=== PATIENT | female | born 1960 | race Caucasian/White ===

== ENCOUNTER → 2016-11-09 | Outpatient (CLI) | payer OTHER ==
[~2016-11-09] VITALS: Ht 170.2 cm; Wt 79.4 kg
[~2016-11-09] MED LIST: ADIPEX-P37.5 M1 PO; ALPRAZOLAM 0.50.5 MG PO; AMBIEN 5 MG TABL5 M1 PO; CARISOPRODOL 3350 MG PO; CLOBETASOL EMOL15 GM TP; HYDROCODONE-APA1 TA1 PO; LEVOTHYROXIN0.175 MG PO; LEXAPRO 10 MG T10 M2 PO; LIPITOR10 MG PO; MELOXICAM15 MG PO; RESTASIS1 EACH OPHTHALMIC; ROBAXIN 750 MG750 M1 PO; TRAMADOL 50 MG50 MG PO; ZANAFLEX4 MG PO
--- NOTE | ~2016-11-09 | HPC ---
[facility] [place] [address] PAIN MANAGEMENT CONSULTATION Name: ANDRE DOSHI ANN Room #: REG DANII Newman#: [id number] Admission: 11/09/16 Attend Phys: Tavon Jean DO Discharge: Date of : 58 Report #: [id number] THIS REPORT FOR: //name// CC: Ki Montoya The patient is seen in consultation at the request of Dr. Ki Wells. HISTORY OF PRESENT ILLNESS: The patient is a 56-year-old female. She was seen in consultation at the request of Dr. Wells to the pain clinic for assistance with management of chronic pain concerns. The patient notes she has had episodic back pain for greater than 10 years. She sustained an injury, right lower extremity, which was well documented as a work place injury. The patient was initially treated for right lower extremity injury (anterior talofibular ligament tear) with gait abnormalities. She seems to have developed some axial and radicular back pain. It appears there were MRIs from 2003 and another MRI referenced from 12/15/2009. I do not have any of these studies, but reference to these studies from Dr. Tavarez at the [facility] notes that the 2003 study showed "a disk bulge at L3-L4 and degenerative disk disease with disk bulge at L4-L5 and neural foraminal narrowing at L4-L5 and joint disease at L5-S1". The note further references the 12/15/2009 MRI noting "a central disk herniation at L4-L5. There was bilateral neural foraminal encroachment. There was also another disk herniation at L2-L3". The patient presents to the pain clinic noting chronic back pain. It is problematic. She describes a "squeezing" sensation in the right gluteal area, has subjective weakness in the right leg, which she attributes to her chronic right ankle issue. She does complain of paresthesia in the right calf (though two-point discrimination shows no sensory loss here). Denies saddle anesthesia or bowel or bladder continence changes. She incidentally notes some cervical radicular symptoms with left arm paresthesia, but states that this was well relieved with cervical epidural injection at the [facility] outside of [place] in 2013. The patient states she does physical therapy stretches, massage seems to help. Chiropractic manipulation has exacerbated pain. She gets in her hot tub at least twice a day. She was taking nonsteroidal anti-inflammatory medications, but had to discontinue due to gastroesophageal reflux even with relatively GI from the meloxicam. She states back pain is worse at night. She states she is "in agony" when she tries to sleep. She had taken hydrocodone in the past and Soma 350 mg when she was in [place], but stopped taking these agents several years ago stating a distaste for the general clientele of somewhat unsavory characters at the pain clinic she chose to patronize. She describes continuous, constant, burning, shooting, aching, grabbing and gnawing pain; rates it anywhere from a 5 to "8+" on a 0-10 visual analog scale. She states she has been taking tramadol recently with nominal efficacy. [address] [address] PAIN MANAGEMENT CONSULTATION Name: ANDRE DOSHI Room #: REG DANII Newman#: [id number] Admission: 11/09/16 Attend Phys: Vincent G. Ted, DO Discharge: Date of : 58 Report #: [id number] REVIEW OF SYSTEMS: Complete review of systems is attached to the chart and it was gone over with the patient. She is , seen in the company of her who is supportive. Does not smoke or drink alcohol to excess. History of Graves disease and subsequent hyperthyroidism secondary to radioactive iodine ablation many years ago. She has had a history of some colon polyps. No diverticulitis concerns noted. History of some chronic anxiety, for which she takes escitalopram 10 mg. Chronic insomnia, she takes zolpidem 10 mg at bedtime, which she has for 9-10 years. Has a prescription for Xanax which she takes "rarely". Dyslipidemia, for which she takes atorvastatin. She has been taking phentermine 37.5 mg over the past 2 months for some weight loss. Currently, does take tramadol and methocarbamol. She had been initially diagnosed with multiple sclerosis in early 1999, was actually treated with Copaxone for several years. 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 She had a craniotomy in 2007 and was told that she does not have multiple sclerosis, that the prior diagnosis was erroneous (?). Again, there are no records regarding this diagnosis (multiple sclerosis) or any records regarding the "benign brain tumor and craniotomy" from 2007. This is all the patient's recollection. The patient works in a job requiring executive functioning. Pain impact score is 49/70. PHYSICAL EXAMINATION: GENERAL: Reveals a 5-feet-7, 172-pound female, BMI is 27.4 kilograms per meter squared. VITAL SIGNS: Blood pressure 137/88, pulse 97 and respirations 16. NEUROLOGIC: Cranial nerves 2-12 appear grossly intact. HEENT: Pupils equal and reactive to light and accommodation. Extraocular muscles are intact. NECK: Cervical range of motion is full. Thyroid is absent. EXTREMITIES: Upper extremity strength is generally symmetric. She does have a small defect at the top of the cranium, compatible with her history of prior craniotomy (bur hole?). Again, upper extremity strength is symmetric at 4/5 to all muscle groups tested. Hand grasp is symmetric. Tinel's is negative. Deep tendon reflexes of the biceps, triceps and brachioradialis are symmetric. HEART: Regular and rhythmical, without murmur. LUNGS: Clear to auscultation. ABDOMEN: Shows a modestly endomorphic build. MUSCULOSKELETAL: Rises from chair using armrest. Gait is tandem, but she has some ataxia when trying to walk on her toes and heels. Lumbar flexion is good at 90 degrees. Tender about the L4 area, somewhat right of midline over the iliac crest and gluteus medius area. Lower extremity strength is objectively 4/5 to all muscle groups tested. Patellar and Achilles reflexes are preserved at 2/4 and 1/4 respectively. Straight leg raise is negative. She does not have [facility] [address] [place] [address] PAIN MANAGEMENT CONSULTATION Name: ANDRE DOSHI ANN Room #: REG DANII Newman#: [id number] Admission: 11/09/16 Attend Phys: Tavon Jean DO Discharge: Date of : 58 Report #: [id number] any tenderness over the SI joints. Rosalio test is negative. Two-point discrimination of lower extremities is symmetric. She does have tenderness over the right gluteus medius and exacerbates pain with resistance to piriformis rotation on the right side. ASSESSMENT: Axial back pain, piriformis syndrome, lumbar radiculopathy by history and prior history of trauma of the right foot. The patient is complaining of chronic pain concerns, requesting medication for the same. RECOMMENDATION: Long discussion with the patient and her today about therapeutic option. I suggested tramadol as an excellent medication for her. With concurrent use of fairly low-dose serotonin reuptake inhibiting agent (10 mg of Lexapro), she can easily increase the tramadol dose to 4 a day. I have taken the liberty of writing for a muscle relaxer, tizanidine 4 mg half to one tablet 3 times a day for spasm. We will seek authorization for right piriformis and gluteus medius muscle injection at next visit. We strongly recommend physical therapy for core strength and range of motion. The patient's new home has a pool which they just opened. Water temperature is 35 degrees. We strongly recommend core exercises and pool walking. We will follow up in 3-4 weeks for reevaluation. If the patient does have an ongoing pain need, she may benefit from a long-acting agent, avoiding the peaks and troughs of short-acting opiates and their consequent dopamine release, which can often be associated with opiate "craving". Would consider Butrans 5-10 mcg q. 7 days. If she has problems with patch, might consider low-dose hydrocodone extended-release single tablet daily. Thank you for allowing me to participate in the patient's care. We will plan on moving forward with right piriformis and gluteus medius muscle injection at next visit. <ELECTRONICALLY SIGNED> By: Tavon Jean DO 11/12/16 0750 [id number] 0050 Tavon Jean DO /nt
[2016-11-09 13:54] VITALS: BP 137/88
== END | disposition home or self-care (01) ==
LOC: PAIN 09:48
DX: G89.29 Other chronic pain (principal); M54.16 Radiculopathy, lumbar region; Z90.89 Acquired absence of other organs; Z90.711 Acquired absence of uterus with remaining cervical stump; Z98.890 Other specified postprocedural states

== ENCOUNTER → 2016-11-23 | Outpatient (CLI) | payer OTHER ==
[~2016-11-23] VITALS: Ht 170.2 cm; Wt 78.5 kg
--- NOTE | ~2016-11-23 | HPC ---
[facility] [place] [address] PAIN MANAGEMENT CONSULTATION Name: ANDRE DOSHI ANN Room #: REG DANII Newman#: [id number] Admission: 11/23/16 Attend Phys: Tavon Jean DO Discharge: Date of : 58 Report #: [id number] THIS REPORT FOR: //name// CC: Ki Jean AMENDED REPORT - SEE BELOW DATE OF SERVICE: 11/23/2016 HISTORY OF PRESENT ILLNESS: The patient is a 56-year-old female, seen in consultation on 11/09/2016, diagnosed with right SI mediated pain, chronic pain, with component of right cervical spondylosis and myofascial pain. We sought authorization for right pyriformis injection under fluoroscopy today. The patient presents to pain clinic today for this injection. Note subjective pain score today is 5 on a 0-10 visual analog scale. ASSESSMENT: Right pyriformis muscle entrapment syndrome PROCEDURE NOTE: Right pyriformis injection under fluoroscopy. DESCRIPTION OF PROCEDURE: After written informed consent was obtained, the patient taken to fluoroscopy suite, placed in prone position. After sterile prep and drape, skin wheal was raised. A 22-gauge stylet needle was placed to contact the inferior aspect of the right SI joint. Depth was noted and needle was withdrawn. Redirected approximately 1 cm caudad and was advanced approximately 1 cm further in depth. Negative aspiration was accomplished. A 1 mL of Omnipaque was injected, which showed spread within the striations of the piriformis muscle in the appropriate horizontal oblique pattern. This was followed with 40 mg triamcinolone plus 2 mL of 0.5% preservative-free bupivacaine. Eckert removed. The area was cleansed, Band-Aids applied. The patient monitored for an appropriate period of time, discharged in good and stable condition. AMENDED DEMOGRAPHIC ERROR - 12/03/16 REPORT ORIGINALLY E.SIGNED - 11/26/16 @ 0806 <ELECTRONICALLY SIGNED> By: Tavon Jean DO 12/05/16 0754 1525 0045 Tavon Jean DO /nt
[2016-11-23 13:58] VITALS: BP 130/60
== END | disposition home or self-care (01) ==
LOC: PAIN 11-15 09:21
DX: M53.3 Sacrococcygeal disorders, not elsewhere classified (principal); M47.892 Other spondylosis, cervical region; M79.1 Myalgia

== ENCOUNTER → 2016-12-13 | Outpatient (CLI) | payer OTHER ==
[~2016-12-13] VITALS: Ht 170.2 cm; Wt 78.5 kg
--- NOTE | ~2016-12-13 | HPC ---
[facility] [place] [address] PAIN MANAGEMENT CONSULTATION Name: DOSHIBLACK Room #: REG DANII Newman#: [id number] Admission: 12/13/16 Attend Phys: Tavon Jean DO Discharge: Date of : 58 Report #: [id number] THIS REPORT FOR: //name// CC: Ki Jean HISTORY OF PRESENT ILLNESS: The patient is a 56-year-old female, prior seen in the pain clinic in consultation 11/09/2016. The patient was diagnosed with axial back pain, piriformis syndrome, lumbar radiculopathy, prior history of cervical radiculopathy. The patient had specific pain in the right piriformis and gluteus. We elected to proceed with a right piriformis injection 11/23/2016. This was accomplished at last visit. She returns to the pain clinic today noting that that injection did not afford dramatic relief. The right gluteal and piriformis pain; however is improved, her pain now is more in her right L4 radicular pattern down the lateral aspect of the leg into the foot. She incidentally notes some cervical radicular symptoms, primarily in the left shoulder and arm today because she notes this is quite intermittent. Her chronic lumbar radicular pain remains problematic. She describes constant, burning, shooting, aching pain, a grabbing sensation in the right hip and down the leg with numbness that she rates as 7 on a 0-10 visual analog scale, exacerbated with prolonged sitting or standing. The patient denies bowel or bladder incontinence or myelopathic symptoms including loss of proprioception. PHYSICAL EXAMINATION: Shows a 56-year-old female, BMI is 27.1 kilograms per meter squared. Vital signs are stable. Rises from chair using armrest. Gait is modestly antalgic, right leg does show decrease hip flexion, lower extremity extension strength with grossly positive straight leg raise on the right. A little tenderness over the right piriformis and gluteus though significantly diminished from initial visit. ASSESSMENT: Symptomatic lumbar radiculopathy by clinical exam and history. The patient has failed conservative therapy including chiropractic manipulation. DIAGNOSTIC STUDIES: EMG from 2010 notes chronic bilateral radiculopathies. MRI from 12/15/2009 noting central disk herniation L4-L5. RECOMMENDATION: We will seek authorization for epidural injection under fluoroscopy at L4-L5. By: [id number] Tavon Jean DO /nt
[2016-12-13 14:34] VITALS: BP 133/79
== END ==
LOC: PAIN 12-06 14:02
DX: M54.16 Radiculopathy, lumbar region (principal)

== ENCOUNTER → 2017-01-21 | Outpatient (CLI) | payer OTHER ==
[~2017-01-21] VITALS: Ht 170.2 cm; Wt 80.4 kg
[~2017-01-21] MED LIST changes: +ADIPEX-P37.5 MG PO; +UNICOMPLEX M TA1 TA1 PO
--- NOTE | ~2017-01-21 | HPC ---
[facility] [place] [address] PAIN MANAGEMENT CONSULTATION Name: TICOBLACK Room #: REG DANII Newman#: [id number] Admission: 01/21/17 Attend Phys: Tavon Jean DO Discharge: Date of : 58 Report #: [id number] THIS REPORT FOR: //name// CC: Ki Jean DATE OF SERVICE: 01/21/2017 The patient is a 56-year-old female, prior seen in the pain clinic 12/13/2016. We sought authorization for epidural injection under fluoroscopy for right L4 radicular pain. The patient returns to pain clinic today noting pain remains problematic still down the back, right-side, buttock, posterior thigh into the foot. She is also noting 2 other complaints, pain in neck, left shoulder and arm, positive radicular symptoms with pain in the shoulder blade. She had prior had a cervical epidural injection at the [facility] in [place] with excellent relief for greater than a year. The other complaint is exogenous obesity. She had been on phentermine for about 6 months in [place], off for about 6-7 months when she moved back to [place]. She has been on phentermine now for about 1 month. Her BMI is 27.8 kilograms per meter squared (172 cm, 80 kilograms). PHYSICAL EXAMINATION: Shows 56-year-old female as noted, BMI is 27.8 kilograms per meter squared. Cervical range of motion is modestly limited with exacerbation of pain in the neck, left shoulder and arm, left abduction strength is modestly diminished. Deep tendon reflexes are symmetric with biceps, triceps, brachioradialis. Lower extremity strength does show diminished right hip flexion, plantar flexion, lower extremity flexion strength. Positive straight leg raise on the right. Rosalio test is negative. Gaenslen test is negative exacerbation of pain with external leg rotation (piriformis negative). ASSESSMENT #1: Symptomatic lumbar radiculopathy, acute exacerbation. RECOMMENDATION: Proceed with epidural injection under fluoroscopy today at L4-L5. ASSESSMENT #2: Exogenous obesity, body mass index of 27.8 kilograms per meter squared. RECOMMENDATIONS: After discussion with the patient today, I have elected to resume phentermine 37.5 mg 1 a day. We talked at length about increasing physical activity, getting heart rate up to 80% of max (approximately 150 beats per minutes) for 20 minutes daily to try and increase basal metabolic rate, [place] [address] PAIN MANAGEMENT CONSULTATION Name: ANDRE DOSHI ANN Room #: REG DANII Newman#: [id number] Admission: 01/21/17 Attend Phys: Tavon Jean DO Discharge: Date of : 58 Report #: [id number] talked about dietary discretion. I told her if she continues to lose weight, I will continue phentermine down to BMI of 26 kilograms per meter squared. ASSESSMENT #3: Component of cervical radiculopathy, left C7 symptoms. RECOMMENDATIONS: We will endeavor to get medical records from the [facility] regarding prior procedure. ASSESSMENT #4: Symptomatic lumbar radiculopathy. PROCEDURE: Lumbar epidural injection under fluoroscopy. PROCEDURE NOTE: After both written and informed consent to include risk of spinal cord damage, increased pain, weakness and dural puncture, the patient was taken to the fluoroscopy suite, placed in the prone position. After sterile prep and drape, a skin wheal with lidocaine was raised. A 22-gauge epidural Tuohy needle was inserted in the midline at L4-L5 with good loss to resistance. Negative aspiration for cerebrospinal fluid or blood was noted. Then 1 mL of Omnipaque under biplanar fluoroscopy showed good spread within the epidural space. This was followed with 80 mg of triamcinolone plus 1 mL of 1.5% preservative-free Xylocaine, 0.5 mL Xylocaine was then injected to flush the needle; it was removed. The patient was monitored for an appropriate period of time and discharged in good and stable condition. By: [id number] Tavon Jean DO /nt
[2017-01-21 09:55] VITALS: BP 123/79
== END | disposition home or self-care (01) ==
LOC: PAIN 01-18 11:11
DX: M54.16 Radiculopathy, lumbar region (principal); M54.12 Radiculopathy, cervical region; E66.09 Other obesity due to excess calories; Z68.27 Body mass index [BMI] 27.0-27.9, adult; Z98.890 Other specified postprocedural states; Z79.899 Other long term (current) drug therapy

== ENCOUNTER → 2017-02-11 | Outpatient (CLI) | payer OTHER ==
[~2017-02-11] VITALS: Ht 170.2 cm; Wt 79.0 kg
[2017-02-11 10:48] VITALS: BP 126/73
== END | disposition home or self-care (01) ==
LOC: PAIN 06:49
DX: M54.16 Radiculopathy, lumbar region (principal); M47.892 Other spondylosis, cervical region; M54.12 Radiculopathy, cervical region; M54.9 Dorsalgia, unspecified; G89.29 Other chronic pain; Z79.899 Other long term (current) drug therapy; Z98.890 Other specified postprocedural states

== ENCOUNTER → 2017-04-12 | Outpatient (CLI) | payer OTHER ==
[~2017-04-12] VITALS: Ht 170.2 cm; Wt 81.4 kg
[~2017-04-12] MED LIST changes: +KLONOPIN0.5 MG PO
--- NOTE | ~2017-04-12 | HPC ---
[facility] [place] [address] PAIN MANAGEMENT CONSULTATION Name: DOSHIBLACK Room #: REG DANII Newman#: [id number] Admission: 04/12/17 Attend Phys: Tavon Jean DO Discharge: Date of : 58 Report #: [id number] THIS REPORT FOR: //name// CC: Ki Jean DATE OF SERVICE: 04/12/2017 DATE OF SERVICE: 04/12/2017 HISTORY OF PRESENT ILLNESS: The patient is a 57-year-old female, prior seen in the pain clinic for symptomatic lumbar radicular and pyriformis syndrome pain. She had had a right pyriformis injection in October. Seen in followup on 02/11/2017. We had tentatively planned to repeat piriformis injection as needed. She returns to pain clinic today with a new complaint to our clinic. She had exacerbation of cervical radicular symptoms. She had had prior cervical symptoms treated at [facility] in [place], single cervical epidural injection afforded excellent relief for radicular pain. That has been several years ago. Today, she returns noting pain has recurred in the neck, left shoulder and arm. She notes pain is dull, tingling, tenderness, rates it as a 7 on VAS. Tends to be worse in the morning. She has paresthesia going into the hand and fingers. Notes pain is exacerbated with a specific neck position. Some chronic low back and right leg pain remains present though the radicular symptoms seem to be eclipsing those pain signals. PHYSICAL EXAMINATION: Today shows 57-year-old female, BMI is 28.1 kilograms per meter squared. Blood pressure is 111/44, pulse 70, respirations 14. Cervical range of motion is modestly limited. Positive Lhermitte's sign with pain radiating to the left shoulder and arm. Left biceps reflex is absent. It is 1/4 on the right. Brachioradialis and triceps reflexes are symmetric. Tinel's is negative. Slight decreased left biceps strength compared to the right. Hand grasp is symmetric. Thyroid is unremarkable. DIAGNOSTIC STUDIES: MRI of the cervical spine from 05/2012 done in [place], [place] noted C5-C6 to have a left paracentral disk protrusion flattening the ventral thecal sac, C6-C7 noted a right paracentral disk protrusion contacting and flattening the right side of the ventral cord. Again, symptoms correlate today, more with a left radicular C6 pattern. ASSESSMENT: Symptomatic cervical radiculopathy by clinical exam and history, correlated with MRI findings. Prior history of cervical epidural injection x1 [place] with good improvement of symptoms at that time. [address] [address] PAIN MANAGEMENT CONSULTATION Name: ANDRE DOSHI Room #: REG DANII Newman#: [id number] Admission: 04/12/17 Attend Phys: Tavon Jean DO Discharge: Date of : 58 Report #: [id number] RECOMMENDATIONS: We will seek authorization for cervical epidural injection at next visit. By: 1201 [id number] Tavon Jean DO /nt
[2017-04-12 08:39] VITALS: BP 111/44
== END | disposition home or self-care (01) ==
LOC: PAIN 02-14 07:33
DX: M54.12 Radiculopathy, cervical region (principal)

== ENCOUNTER → 2017-04-26 | Outpatient (CLI) | payer OTHER ==
[~2017-04-26] VITALS: Ht 170.2 cm; Wt 82.1 kg
[~2017-04-26] MED LIST changes: +ADVIL ALLERGY1 EACH PO; +ALLI60 MG PO
--- NOTE | ~2017-04-26 | HPC ---
[facility] [address] [address] PAIN MANAGEMENT CONSULTATION Name: DOSHIBLACK Room #: REG DANII Saleem.#: [id number] Admission: 04/26/17 Attend Phys: Tavon Jean DO Discharge: Date of : 58 Report #: [id number] THIS REPORT FOR: //name// CC: Ki Jean The patient is a 57-year-old female, typically treated for symptomatic cervical radiculopathy, history of piriformis syndrome and lumbar radiculopathy, last seen in the pain clinic on 04/12/2017. We sought authorization for cervical epidural injection under fluoroscopy. She returns to pain clinic today for that procedure. She incidentally notes, however, other ongoing issues. She is having chronic insomnia and I suggested she discontinue her long-term (greater than 10 years) use of Ambien and rotate to clonazepam 0.5 mg at bedtime. She notes that she is starting to remember some dreams and she feels much more rested after her sleep. She is requesting that I refill this prescription. I have written for clonazepam 0.5 mg at bedtime to be used on a nondaily basis, 20 tablets for 30 days. I did renew this prescription today. She also notes that she is struggling with weight. She had used phentermine 37.5 mg (Adipex-P) with some efficacy. I wrote for it one-month and then discontinued the second month. She did lose weight. She is requesting that we renew this today. The patient was awake today. BMI is 28.3 kilograms per meter squared, weight is 181 pounds.. We will trial phentermine again for one-month and reweigh at that time. If she is showing good weight loss, we will continue same. The patient was cautioned about cardiac risk factors with phentermine. Prescription for phentermine 37.5 mg was generated, 30 tablets with no refill and clonazepam 0.5 mg at bedtime 20 tablets with no refill. ASSESSMENT: Cervical radiculopathy. PROCEDURE: Cervical epidural injection under fluoroscopy. PROCEDURE NOTE: After written and informed consent was obtained including risk of dural puncture, spinal cord trauma, paralysis and increased pain, the patient was taken to the fluoroscopy suite and placed in the prone position, with appropriate abdominal bolstering, neck was flexed, palms under the thighs. Skin was prepped with ChloraPrep. Sterile draping was applied. Skin wheal with 1% Xylocaine was raised. A 22-gauge 3-1/2 inch epidural Tuohy needle was placed via a midline approach at the C7- T1 interspace, advanced under biplanar fluoroscopy using continuous loss of resistance. With appropriate loss of resistance at the expected depth on lateral view, the glass loss of resistance syringe was disconnected. A low volume extension tubing was connected to the needle and a 5 mL syringe. Negative aspiration for [address] [place] [address] PAIN MANAGEMENT CONSULTATION Name: ANDRE DOSHI Room #: REG DANII Newman#: [id number] Admission: 04/26/17 Attend Phys: Tavon Jean DO Discharge: Date of : 58 Report #: [id number] cerebrospinal fluid or blood was noted. A 1 mL of Omnipaque was injected which showed spread within the epidural space on biplanar fluoroscopy. This was followed with 80 mg of triamcinolone plus 1 mL of 1.5% preservative Xylocaine. Needle was withdrawn to the interspinous ligament, 0.5 mL of Xylocaine was used to flush the needle. The needle was then completely withdrawn. The area was cleansed. Band-Aid was applied. The patient was allowed to move off the procedure table and ambulated to the recovery room, monitored for an appropriate period of time, discharged in good and stable condition. <ELECTRONICALLY SIGNED> By: Tavon Jean DO 04/29/17 1014 1622 1412 Tavon Jean DO /nt
[2017-04-26 08:12] VITALS: BP 131/72
== END ==
LOC: PAIN 07:02
DX: M54.12 Radiculopathy, cervical region (principal); M54.5 Low back pain; Z79.899 Other long term (current) drug therapy

== ENCOUNTER → 2017-05-24 | Outpatient (CLI) | payer OTHER ==
[~2017-05-24] VITALS: Ht 170.2 cm; Wt 80.3 kg
--- NOTE | ~2017-05-24 | HPC ---
[facility] [place] [address] PAIN MANAGEMENT CONSULTATION Name: ANDRE DOSHI ANN Room #: REG DANII Newman#: [id number] Admission: 05/24/17 Attend Phys: Tavon Jean DO Discharge: Date of : 58 Report #: [id number] THIS REPORT FOR: //name// CC: Ki Jean HISTORY OF PRESENT ILLNESS: The patient is a pleasant 57-year-old female, typically treated for cervical radiculopathy. Component of exogenous obesity utilizing phentermine 37.5 mg. Last seen in the pain clinic 05/17/2017. She had 2 cervical epidural injections but still had ongoing cervical radicular symptoms, primarily left shoulder and arm. We sought authorization for a third epidural injection today. She presents to pain clinic today for this procedure. Notes, the pain continues problematic in the left shoulder and arm. Physical exam is compatible with cervical radiculopathy, positive Lhermitte's is noted. PROCEDURE: Cervical epidural injection under fluoroscopy. INDICATIONS: Symptomatic cervical radiculopathy. PROCEDURE NOTE: After written and informed consent was obtained including risk of dural puncture, spinal cord trauma, paralysis and increased pain, the patient was taken to the fluoroscopy suite and placed in the prone position, with appropriate abdominal bolstering, neck was flexed, palms under the thighs. Skin was prepped with ChloraPrep. Sterile draping was applied. Skin wheal with 1% Xylocaine was raised. A 22-gauge 3-1/2 inch epidural Tuohy needle was placed via a midline approach at the C7-T1 interspace, advanced under biplanar fluoroscopy using continuous loss of resistance. With appropriate loss of resistance at the expected depth on lateral view, the glass loss of resistance syringe was disconnected. A low volume extension tubing was connected to the needle and a 5 mL syringe. Negative aspiration for cerebrospinal fluid or blood was noted. A 1 mL of Omnipaque was injected which showed spread within the epidural space on biplanar fluoroscopy. This was followed with 80 mg of triamcinolone plus 1 mL of 1.5% preservative Xylocaine. Needle was withdrawn to the interspinous ligament, 0.5 mL of Xylocaine was used to flush the needle. The needle was then completely withdrawn. The area was cleansed. Band-Aid was applied. The patient was allowed to move off the procedure table and ambulated to the recovery room, monitored for an appropriate period of time, discharged in good and stable condition. The patient was discharged in good and stable condition. Follow up as needed for medication management. <ELECTRONICALLY SIGNED> By: Tavon Jean DO 05/27/17 0929 [id number] Tavon Jean DO /nt
[2017-05-24 08:49] VITALS: BP 138/84
== END ==
LOC: PAIN 08:05
DX: M54.12 Radiculopathy, cervical region (principal)

== ENCOUNTER → 2017-07-01 | Outpatient (CLI) | payer OTHER ==
[~2017-07-01] VITALS: Ht 170.2 cm; Wt 81.7 kg
[~2017-07-01] MED LIST changes: +VOLTAREN GEL 1100 GM TOP
--- NOTE | ~2017-07-01 | HPC ---
[facility] [place] [address] PAIN MANAGEMENT CONSULTATION Name: DOSHIBLACK Room #: REG DANII Newman#: [id number] Admission: 07/01/17 Attend Phys: Tavon Jean DO Discharge: Date of : 58 Report #: [id number] THIS REPORT FOR: //name// CC: Ki Jean DATE OF SERVICE: 07/01/2017 HISTORY OF PRESENT ILLNESS: The patient is a 57-year-old female, prior seen in the pain clinic 05/24/2017. The patient was given a cervical epidural injection with significant improvement of radicular pain. Returns to pain clinic today. She notes cervical radicular symptoms are improved, but still remains modestly problematic. Ongoing pain in the low back without classic radicular symptoms. Incidentally, the patient has had a lumbar epidural injection in December of this year with improvement of radicular pain, the back pain remains more positional related to rotation and side bending. She notes this is the greater pain that interferes with function including traveling and walking. The patient has a history of axial back pain, lumbar radiculopathy, right lower extremity pain, status post anterior talofibular ligament tear with somewhat of a modest change in her gait. Status post craniotomy for benign cerebral mass many years ago, myofascial pain component, requiring high risk complex medication management. PHYSICAL EXAMINATION: Today, shows a 57-year-old female, BMI is 28.2 kg/m2. Vital signs are generally stable as noted in the EMR. Cervical range of motion is modestly limited. Upper extremity strength is preserved. There are no ____ radicular symptoms noted at this time. Rises from chair using armrest. Diffuse tenderness across the low back from about L4-L5 down. Tender over the SI joints, though no discrete reproducible pain areas over the SI joints proper. Rosalio test is negative. Gaenslen's test is negative. Lumbar rotation and sidebending do exacerbate low back pain. Flexion is modestly limited. Lower extremity strength is symmetric, 4/5 to all muscle groups tested. Patellar and Achilles reflexes are preserved. There were no recent diagnostic studies of the lumbar spine. ASSESSMENT: 1. Symptomatic cervical radiculopathy, clinical exam and history relatively quiescent at present; history of lumbar radiculopathy as well, also radicular symptoms are quiescent. 2. Acute exacerbation of lumbosacral spondylosis, lumbar spondylitic pain with pain appearing to come from bilateral L4-L5 and L5-S1 facet joints. Again, no radicular pain component. RECOMMENDATION: [address] [address] PAIN MANAGEMENT CONSULTATION Name: ANDRE DOSHI Room #: REG DANII Newman#: [id number] Admission: 07/01/17 Attend Phys: Tavon Jean DO Discharge: Date of : 58 Report #: [id number] 1. We will seek authorization for bilateral L4-L5 and L5-S1 facet joint injection under fluoroscopy. 2. If this does not afford adequate relief, we will need to get an MRI of the lumbar spine for further evaluation. The patient was discharged in good and stable condition today. We had a prolonged visit from 8:18 to 8:45, greater than 50% of this 25 plus minute visit was spent counseling the patient, reviewing interval history and discussing therapeutic options. <ELECTRONICALLY SIGNED> By: Tavon Jean DO 07/03/17 0834 [id number] Tavon Jean DO /nt
[2017-07-01 08:09] VITALS: BP 128/73
== END ==
LOC: PAIN 07:11
DX: M54.16 Radiculopathy, lumbar region (principal); M47.897 Other spondylosis, lumbosacral region; M54.12 Radiculopathy, cervical region; M79.1 Myalgia; Z79.899 Other long term (current) drug therapy

== ENCOUNTER → 2017-07-19 | Outpatient (CLI) | payer OTHER ==
[~2017-07-19] VITALS: Ht 170.2 cm; Wt 83.9 kg
--- NOTE | ~2017-07-19 | HPC ---
[address] [address] PAIN MANAGEMENT CONSULTATION Name: ANDRE DOSHI Room #: REG DANII Newman#: [id number] Admission: 07/19/17 Attend Phys: Tavon Jean DO Discharge: Date of : 58 Report #: [id number] THIS REPORT FOR: //name// CC: Ki Jean PROCEDURE NOTE: Lumbar facet joint injections x 4 (bilateral L4-L5 and L5-S1). INDICATIONS: Symptomatic lumbar spondylosis. PROCEDURE: After informed consent was obtained, the patient was taken to the fluoroscopy suite, placed in prone position. After sterile prep and drape, skin wheal was raised. A 22-gauge stylet needle was placed to contact the inferior aspect of the left L4-L5 and left L5-S1 facet joints. AP and lateral projections showed good needle placement. 20 mg triamcinolone plus 1 mL of 0.5% preservative-free bupivacaine was injected at each joint. Needle was then turned obliquely to the right and procedure was repeated. After all four needles were removed, the area was cleansed and Band-Aid was applied. The patient was allowed to ambulate to the recovery room, monitored for an appropriate period of time. The patient was discharged in good and stable condition. Fluoroscopy time was under 15 seconds. By: [id number] Tavon Jean DO /nt
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
[2017-07-19 09:01] VITALS: BP 131/69
== END | disposition home or self-care (01) ==
LOC: PAIN 07:35
DX: M47.816 Spondylosis without myelopathy or radiculopathy, lumbar region (principal); M54.12 Radiculopathy, cervical region; G89.29 Other chronic pain; Z79.899 Other long term (current) drug therapy; Z98.890 Other specified postprocedural states

== ENCOUNTER → 2017-10-21 | Outpatient (CLI) | payer OTHER ==
[~2017-10-21] VITALS: Ht 170.2 cm; Wt 83.4 kg
[~2017-10-21] MED LIST changes: +IBUPROFEN 800800 M1 PO
--- NOTE | ~2017-10-21 | HPC ---
[facility] [address] [place] [address] PAIN MANAGEMENT CONSULTATION Name: DOSHIBLACK Room #: REG DANII Saleem.#: [id number] Admission: 10/21/17 Attend Phys: Tavon Jean DO Discharge: Date of : 58 Report #: [id number] THIS REPORT FOR: //name// CC: Ki Jean The patient is a 57-year-old female, long treated by the pain clinic for axial back pain, lumbar and lumbosacral spondylosis without myelopathy, history of cervical radiculopathy, history of craniotomy for nonmalignant tumor with ongoing headaches. She was last seen in the pain clinic 07/19/2017. We performed bilateral L4-L5 and L5-S1 facet joint injections. Please do note that she had near 100% relief for several hours following the local anesthetic, and actually had incremental relief for several months. She returns to pain clinic today complaining of multiple pain complaints. She notes primarily pain in the low back as her rate limiting factor. Some chronic right ankle pain, status post trauma and surgery many years ago. Ongoing headache, status post craniotomy. She has been relatively stable on multiple medications including tramadol 50 mg 4 times a day (the patient does take selective serotonin reuptake inhibitor for mood issues. We have cautioned her about serotonin reuptake syndrome and keeping the tramadol dose below 200 mg. She does note increasing pain with standing and walking. She notes co-analgesic agents including topical Voltaren gel has been efficacious, Soma 350 mg up to b.i.d. for spasm, clonazepam 0.5 mg at bedtime for anxiety and insomnia, limiting 20 tablets for 30 days have all enable her to participate in activities of daily living. 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 She actually notes the walking days tend to be her better days. Sitting does exacerbate pain. We reviewed the fact that opiate medications are being used to provide analgesia adequate to support activities of daily living, not attempting to achieve a specific pain score on the 0-10 Visual Analog Scale. The current opiate medications are providing sufficient analgesia to allow the patient to participate in activities of daily living. The patient is not exhibiting any aberrant behavior suggestive of drug diversion. The patient is not having any adverse reactions to medications. The patient is not suffering from daytime somnolence or mental acuity changes. The patient is managing opiate-induced constipation with appropriate [id number] agents and dietary considerations. The patient was counseled on concern for caution with operating a motor vehicle while using opiate medications. A physical exam was performed and the patient's functional status was evaluated. All patients with back pain were advised against the bed rest greater than [address] [place] [address] PAIN MANAGEMENT CONSULTATION Name: ANDRE DOSHI ANN Room #: REG DANII Newman#: [id number] Admission: 10/21/17 Attend Phys: Tavon Jean DO Discharge: Date of : 58 Report #: [id number] days and were advised to return to normal activities. Pain score assessment was noted and the treatment plan was reviewed with the patient. All current medications, both prescribed and OTC were reviewed and reconciled on the electronic medical record. Tobacco screening was accomplished and smoking cessation was advised when indicated. BMI was noted and diet/exercise modification was recommended for all patients following outside normal parameters. I reviewed with the patient today their responsibilities to safeguard prescription medications, reviewed their responsibility to utilize medications only as prescribed by the physician. They are to seek and receive pain medications only from 1 physician group ( [facility]). They are to use 1 pharmacy and keep the clinic informed if they change pharmacies. Their responsibilities include making followup visits in a timely fashion and to avoid abrupt discontinuation of medication usage. Their responsibilities further include bringing their medications (bottles from the pharmacy with residual pills) to the visit for possible confirmation of pill counts and the patient understands it is their responsibility to submit to random drug screens to ensure both that the medications prescribed are present, and that no other controlled substances are present. All prescriptions provided today were generated electronically. PHYSICAL EXAMINATION: Reveals a 57-year-old female, BMI is moderately elevated about 28 kg/m2. Vital signs show modest hypertension as noted on the EMR. Cervical range of motion is adequate. Alert and oriented to person, place and time, judged to be a reasonable historian. Rises from chair using armrest. Diffuse tenderness across the low back and lumbar facets, pain is exacerbated with side bending and rotation. Lower extremity strength is preserved. Lumbar flexion is actually good to about 80 degrees. Straight leg raise is negative. ASSESSMENT: Symptomatic lumbosacral and lumbar spondylosis without myelopathy or radiculopathy, history of cervical radiculopathy, status post craniotomy with ongoing headaches, requiring complex medication management. RECOMMENDATION: Long discussion with the patient today about therapeutic option. She was actually seen in the pain clinic for greater than 25 minutes today, greater than 50% of time spent discussing therapeutic options. We discussed moving forward with medial branch dorsal rami diagnostic blocks (L3, 4, and 5). If this again affords good transient relief, we will consider neurolysis of same. The patient understands that we will do bilateral diagnostic blocks; however, will only do unilateral RFL and then wait 7-10 days to repeat on the contralateral side if indicated. We discussed risks and benefits of this therapeutic approach. She is very enthusiastic about moving forward. [facility] [address] [place] [address] PAIN MANAGEMENT CONSULTATION Name: ANDRE DOSHI ANN Room #: REG BRIDGETKenyetta Newman#: [id number] Admission: 10/21/17 Attend Phys: Tavon Jean DO Discharge: Date of : 58 Report #: [id number] Today, I have taken the liberty of renewing her adjuvant medications including carisoprodol, clonazepam, diclofenac topical, and tramadol, quantity sufficient for 4 months. Discharged in good and stable condition. We will seek authorization for medial branch dorsal rami diagnostic block at next visit, L3, 4 and 5 for lumbar and lumbosacral spondylosis. <ELECTRONICALLY SIGNED> By: Tavon Jean DO 10/25/17 0944 [id number] Tavon Jean DO /nt
[2017-10-21 09:39] VITALS: BP 142/71
== END ==
LOC: PAIN 08-19 07:02
DX: M47.27 Other spondylosis with radiculopathy, lumbosacral region (principal); Z79.899 Other long term (current) drug therapy